=== PATIENT | female | born 1990 | race Caucasian/White ===

== ENCOUNTER 2017-02-22 00:45 | Observation (INO) | payer OTHER ==
[2017-02-22] VITALS (11 sets, daily range): BP systolic 103–173; BP diastolic 59–102; PULSE 77–108; RESP 16–19; TEMP 97.1–98.4; O2SAT 96–100
[~2017-02-22] VITALS: Ht 165.1 cm; Wt 70.0 kg
[2017-02-22] MEDS ORDERED: LEVO25TA4 PO (01:02)
[2017-02-22] MEDS ORDERED: SODIUM CHLOR 0.9% 1000 ML INJ 1,000 ML IV ONE (01:13)
[2017-02-22] MEDS ORDERED: SODIUM CHLORIDE 0.9% FLUSH 10 ML FLUSH IVF PRN (01:15)
--- NOTE | 2017-02-22 01:40 | RADRPT ---
EXAM DATE/TIME: 02/22/2017 01:26 [place] COMPARISON: No previous studies available for comparison. INDICATIONS : Cough. MEDICAL HISTORY : None. SURGICAL HISTORY : None. ENCOUNTER: Initial ACUITY: 1 day PAIN SCORE: 0/10 LOCATION: Bilateral chest FINDINGS: A single view of the chest demonstrates the lungs to be symmetrically aerated without evidence of mas s, infiltrate or effusion. The cardiomediastinal contours are unremarkable. Osseous structures are intact. CONCLUSION: No acute disease. Saeed Saini MD on February 22, 2017 at 1:38 Board Certified Radiologist. This report was verified electronically.
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
[2017-02-22 01:47] LABS: BASOPHIL % 0.5 % (0.0-2.0); EOSINOPHIL # 0.2 TH/MM3 (0-0.4); EOSINOPHIL % 2.5 % (0.0-4.0); HEMATOCRIT 39.2 % (35.0-46.0); HEMO FLAGS DIFF FINAL; LYMPH % 40.4 % (9.0-44.0); LYMPHOCYTE # 2.6 TH/MM3 (1.0-4.8); MEAN CELL VOLUME 99.3 FL (80.0-100.0); MEAN CORPUSCULAR HEMOGLOBIN 35.2 PG (27.0-34.0); MEAN CORPUSCULAR HGB CONC 35.4 % (32.0-36.0); NEUT % 47.6 % (16.0-70.0); PLATELET COUNT 407 TH/MM3 (150-450); RED BLOOD COUNT 3.94 MIL/MM3 (4.00-5.30); WHITE BLOOD COUNT 6.4 TH/MM3 (4.0-11.0)
[2017-02-22 01:48] LABS: BACTERIA, URINE RARE /hpf; BLOOD, URINE NEG (NEG); GLUCOSE,URINE NEG (NEG); KETONE, URINE NEG (NEG); NITRITE,URINE NEG (NEG); SQUAMOUS EPITHELIAL CELL URINE 1 /hpf (0-5); URINE COLOR LIGHT-YELLOW (YELLW/STRAW)
[2017-02-22 01:51] LABS: COMMENT (UR) CULT NOT INDICATED; CULTURE IF INDICATED CULT NOT INDICATED
[2017-02-22 01:55] LABS: AMPHETAMINE, URINE NEG (NEG); BARBITURATES, URINE NEG (NEG); COCAINE, URINE NEG (NEG)
[2017-02-22 01:57] LABS: APTT (PATIENT) 26.4 SEC (24.3-30.1); INTERNATIONAL NORMALIZED RATIO 1.1 RATIO
[2017-02-22 02:11] LABS: ALT (GPT) 132 U/L (10-53); ANION GAP 11 MEQ/L (5-15); AST (GOT) 97 U/L (15-37); BICARBONATE 25.6 MEQ/L (21.0-32.0); BLOOD UREA NITROGEN 9 MG/DL (7-18); CHLORIDE 106 MEQ/L (98-107); GLOMERULAR FILTRATION RATE 143 ML/MIN (>89); POTASSIUM 3.2 MEQ/L (3.5-5.1); SODIUM (NA) 143 MEQ/L (136-145)
[2017-02-22 02:18] LABS: ALKALINE PHOSPHATASE 114 U/L (45-117); BETA HCG QUANT LESS THAN 1 MIU/ML (0-5); TOTAL BILIRUBIN ADULT 0.2 MG/DL (0.2-1.0)
[2017-02-22 02:20] LABS: ACETAMINOPHEN LESS THAN 2.0 MCG/ML (10.0-30.0)
[2017-02-22] MEDS ORDERED: SODIUM CHLOR 0.9% 1000 ML INJ 1,000 ML IV SCH (03:15)
[2017-02-22] MEDS ORDERED: POTASSIUM CHLORIDE 25 MEQ EFFERVESCENT TAB PO ONE (03:15)
[2017-02-22] MEDS ORDERED: NALOXONE HCL 0.4 MG/ML AMP IV PRN (04:00)
[2017-02-22] MEDS ORDERED: SODIUM CHLORIDE 0.9% FLUSH 10 ML FLUSH IV FLUSH PRN (04:00)
[2017-02-22] MEDS ORDERED: ONDANSETRON HCL 4 MG/2 ML VIAL IV ONE (04:15)
[2017-02-22] MEDS: SODIUM CHLOR 0.9% 1000 ML INJ 1,000 ML IV SCH ×2 (04:22→15:58)
[2017-02-22 04:55] LABS: ALKALINE PHOSPHATASE 99 U/L (45-117); ALT (GPT) 116 U/L (10-53); ANION GAP 9 MEQ/L (5-15); AST (GOT) 90 U/L (15-37); BICARBONATE 24.3 MEQ/L (21.0-32.0); BLOOD UREA NITROGEN 9 MG/DL (7-18); CHLORIDE 108 MEQ/L (98-107); GLOMERULAR FILTRATION RATE 139 ML/MIN (>89); POTASSIUM 4.2 MEQ/L (3.5-5.1); SODIUM (NA) 141 MEQ/L (136-145); TOTAL BILIRUBIN ADULT 0.2 MG/DL (0.2-1.0)
[2017-02-22] MEDS: SODIUM CHLORIDE 0.9% FLUSH 10 ML FLUSH IV FLUSH SCH ×2 (09:00→20:14)
[2017-02-22 09:54] LABS: BASOPHIL % 0.8 % (0.0-2.0); EOSINOPHIL # 0.1 TH/MM3 (0-0.4); EOSINOPHIL % 1.4 % (0.0-4.0); HEMATOCRIT 38.8 % (35.0-46.0); HEMO FLAGS DIFF FINAL; LYMPH % 30.2 % (9.0-44.0); LYMPHOCYTE # 1.6 TH/MM3 (1.0-4.8); MEAN CELL VOLUME 100.5 FL (80.0-100.0); MEAN CORPUSCULAR HEMOGLOBIN 35.1 PG (27.0-34.0); MEAN CORPUSCULAR HGB CONC 34.9 % (32.0-36.0); MONO % 11.3 % (0.0-8.0); NEUT % 56.3 % (16.0-70.0); PLATELET COUNT 362 TH/MM3 (150-450); RED BLOOD COUNT 3.86 MIL/MM3 (4.00-5.30); WHITE BLOOD COUNT 5.3 TH/MM3 (4.0-11.0)
[2017-02-22] MEDS ORDERED: LORazepam 1 MG TAB PO PRN (11:15)
[2017-02-22] MEDS ORDERED: FLUMAZENIL 0.5 MG/5 ML VIAL IV PUSH PRN (11:15)
[2017-02-22] MEDS ORDERED: LORazepam 2 MG/ML VIAL IV PUSH PRN ×2 (11:15)
[2017-02-22] MEDS ORDERED: LORazepam 2 MG TAB PO PRN (11:15)
[2017-02-22] MEDS: LEVOTHYROXINE SODIUM 25 MCG TAB PO SCH (11:15)
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
--- NOTE | 2017-02-22 11:26 | PD.CONS ---
Provisional Diagnosis Admission Date February 22, 2017 at 03:44 [place]. Major depressive disorder, single episode, severe, without psychosis, alcohol use disorder History of Present Illness Service Psychiatry Consult Requested By Primary Care Physician No Primary Care Physician HPI The patient is a 27 year old woman, domicile with boyfriend in [place], no kids, employed chiropractor assistance, without any significant psychiatric history, no previous suicidal attempts, no psychiatric hospitalizations, alcohol use disorder, who presents to the [facility] emergency department with a history of intentionally overdosing on 90-95 200 mg tablets of ibuprofen at approximately 11:30 PM this evening with the intention to after an argument with boyfriend. The patient reports that she was angry at her boyfriend. She reports that they have been fighting since yesterday, but she has been feeling depressed for the last 6 weeks, patient is oppositional and resistant, very irritable, refused to elaborate about the circumstances and the reason of her depression. She says that she moved to [place] from [place] about 3 months ago and since then she has been very unhappy, she feels that she had not been able to fulfill her goals she feels under appreciated by her boyfriend. She has been having increased problems sleeping at night, anxiety, everyday sadness, generalized pessimism, alcohol use, interpersonal conflicts with boyfriend and friends, increased sensitivity to rejection and frustration. Yesterday, she was drinking, she says that she was drunk, had an argument with her boyfriend and "decided just to end it all". However, at this moment she denies suicidal and homicidal ideation, she denies visual and auditory hallucinations. As per nurses patient has been at times agitated, irritable, verbally hostile, difficult to manage in the ER. She hasn' t needed ETO's. Patient is fully oriented 3, no attention deficit or fluctuation of consciousness present, patient denies the use of illicit drugs, reports every the use of alcohol, 3-6 beers. Review of Systems Constitutional: DENIES: Diaphoretic episodes, Fatigue, Fever, Weight gain, Weight loss, Chills, Dizziness, Change in appetite, Night Sweats Endocrine: DENIES: Abnorml menstrual pattern, Heat/cold intolerance, Polydipsia , Polyuria, Polyphagia Eyes: DENIES: Blurred vision, Diplopia, Eye inflammation, Eye pain, Vision loss , Photosensitivity, Double Vision Ears, nose, mouth, throat: DENIES: Tinnitus, Hearing loss, Vertigo, Nasal discharge, Oral lesions, Throat pain, Hoarseness, Ear Pain, Running Nose, Epistaxis, Sinus Pain, Toothache, Odynophagia Respiratory: DENIES: Apneas, Cough, Snoring, Wheezing, Hemoptysis, Sputum production, Shortness of breath Cardiovascular: DENIES: Chest pain, Palpitations, Syncope, Dyspnea on Exertion , PND, Lower Extremity Edema, Orthopnea, Claudication Gastrointestinal: DENIES: Abdominal pain, Black stools, Bloody stools, Constipation, Diarrhea, Nausea, Vomiting, Difficulty Swallowing, Anorexia Genitourinary: DENIES: Abnormal vaginal bleeding, Dysmenorrhea, Dyspareunia, Sexual dysfunction, Urinary frequency, Urinary incontinence, Urgency, Hematuria , Dysuria, Nocturia, Vaginal discharge Musculoskeletal: DENIES: Joint pain, Muscle aches, Stiffness, Joint Swelling, Back pain, Neck pain Integumentary: DENIES: Abnormal pigmentation, Pruritus, Rash, Nail changes, Breast masses, Breast skin changes, Nipple discharge Hematologic/lymphatic: DENIES: Bruising, Lymphadenopathy Immunologic/allergic: DENIES: Eczema, Urticaria Neurologic: DENIES: Abnormal gait, Headache, Localized weakness, Paresthesias, Seizures, Speech Problems, Tremor, Poor Balance Psychiatric: COMPLAINS OF: Depression, Suicidal Ideation, DENIES: Anxiety, Confusion, Mood changes, Hallucinations, Agitation, Homicidal Ideation, Delusions Past Family Social History Coded Allergies: Penicillin (Verified Allergy, Unknown, 02/22/17) Reported Medications Levothyroxine 25 Mcg Tab25 Mcg PO DAILY #30 TAB Ref 0 02/22/17 Current Medications Medications (Trade) Dose Ordered Sig/Kylie Route Start Time Stop Time Status Last Admin (NS 1000 ml Inj) 1,000 ml @ 100 mls/hr Q10H IV 02/22/17 03:51 02/22/17 04:22 (NS Flush) 2 ml UNSCH PRN IV FLUSH 02/22/17 04:00 (NS Flush) 2 ml BID IV FLUSH 02/22/17 09:00 (Narcan Inj) 0.4 mg UNSCH PRN IV 02/22/17 04:00 (Protonix) 40 mg DAILY PO 02/22/17 11:15 UNV (Synthroid) 25 mcg DAILY PO 02/22/17 11:15 UNV Family History Patient has a sister with bipolar disorder Social History Patient was born and raised in [place], she lived part of her time in [place], she has been living in [place] with her boyfriend in [place] for 3 months, she has no kids, she is unemployed, her highest level of education is high school Patient's Strengths (min. 2) Verbal communication Physical Exam A physical exam, no EPS, no tremors, no withdrawal, no psychomotor retardation or agitation, present Vital Signs Vital Signs Date Time Temp Pulse Resp B/P Pulse Ox O2 Delivery O2 Flow Rate FiO2 02/22/17 10:20 87 02/22/17 09:46 Room Air 02/22/17 09:00 97.4 19 139/96 98 Lab Results Toxicology is negative BAL was 282 Mental Status Examination Appearance woman, age appearing, good hygiene, [facility], she is partially cooperative, irritable, at times oppositional Speech: Slow Orientation: x3 Memory: Unremarkable Thought Process: Logical, Goal Directed, Linear Thought Content: Unremarkable Hallucination Type: None Attention and Concentration: Good Suicidal Ideation: No Previous Suicide Attempts: Yes Homicidal Ideation: No Previous Homicide Attempts: No Judgment: Poor Affect: Irritable Mood: Angry, Irritable Motor Activity: Normal gait Assessment & Plan Problem List: (1) Depression Assessment & Plan: The patient is a 27 year old woman, domicile with boyfriend in [place], no kids, employed chiropractor assistance, without any significant psychiatric history, no previous suicidal attempts, no psychiatric hospitalizations, alcohol use disorder, who presents to the [facility] emergency department with a history of intentionally overdosing on - 200 mg tablets of ibuprofen at approximately 11:30 PM this evening with the intention to after an argument with boyfriend. Patient was intoxicated with alcohol in her arrival to the ER, initial BAL was 282. Today on psychiatric evaluation patient presents symptomatology consistent with severe depression, she reports about 6 months of generalized pessimism, increased problems sleeping, recent alcohol use, increased sensitivity to rejection, to frustration, increased conflicts with couple and friends. Yesterday after argument she decided to commit suicide. Due to the lethality of her suicidal attempt and to the severity of depressive symptoms patient poses a very high risk of danger to herself and needs psychiatric hospitalization for stabilization. Patient should be transferred to psychiatry once medically stable. Watch for withdrawal, CIWA protocol. No psychotropics indicated at this moment. Patient should remain with 1:1 sitter in medical floor. Extensive psycho education, motivation and support provided. Collateral information is is still pending. We'll follow-up in the floor. ICD Code: F32.9 Assessment & Plan Estimated LOS: days Problem Qualifiers (1) Depression: Qualified Code: F32.9 - Depression, unspecified depression type Rusty Chang MD February 22, 2017 11:26
[2017-02-22 12:30] LABS: BLOOD GAS BASE EXCESS -2.7 mmol/L (-2-2); BLOOD GAS CARBOXYHEMOGLOBIN 1.1 % (0-4); BLOOD GAS HCO3 21 mmol/L (22-26); BLOOD GAS METHEMOGLOBIN 0.9 % (0-2); BLOOD GAS O2 HGB SATURATION 96 % (90-100); BLOOD GAS OXYGEN CONTENT 18.2 Vol % (12.0-20.0); BLOOD GAS PCO2 34 mmHg (38-42); BLOOD GAS PO2 97 mmHg (61-120); BLOOD GAS TOTAL HGB 13.5 G/DL (12.0-16.0); TEMP CORR TO 98.6
[2017-02-22] MEDS: THIAMINE HCL 100 MG TAB PO SCH (12:30)
[2017-02-22] MEDS: FOLIC ACID 1 MG TAB PO SCH (12:30)
[2017-02-22 12:31] LABS: CRITICAL VALUE NO; DRAW SITE RT RADIAL; FIO2 21 %; NUMBER OF ARTERIAL PUNCTURES 1; OXYGEN DEVICE ROOM AIR; STAT NO
[2017-02-22] MEDS: MULTIVITAMIN TAB PO SCH (12:31)
[2017-02-22] MEDS: PANTOPRAZOLE SOD 40 MG DELAYED RELEASE TAB PO SCH (12:31)
--- NOTE | 2017-02-22 14:20 | EKG ---
Date Performed: 02/22/2017 Time Performed: 00:59:54 PTAGE: 27 years EKG: Sinus rhythm WITH SINUS ARRHYTHMIA NONSPECIFIC T-WAVE ABNORMALITY BORDERLINE ECG NO PREVIOUS TRACING DOCTOR: Cooper Simmons Interpretating Date/Time 02/22/2017 14:17:47
[2017-02-22] MEDS ORDERED: ONDANSETRON HCL 4 MG/2 ML VIAL IV PUSH PRN (15:45)
[2017-02-23] VITALS (7 sets, daily range): BP systolic 114–154; BP diastolic 75–104; PULSE 53–88; RESP 16–18; TEMP 96.5–98.1; O2SAT 98–100
[2017-02-23] MEDS: SODIUM CHLOR 0.9% 1000 ML INJ 1,000 ML IV SCH ×2 (00:10→09:34)
[2017-02-23] MEDS ORDERED: LORazepam 2 MG/ML VIAL IV PUSH ONE (00:45)
[2017-02-23] MEDS: LEVOTHYROXINE SODIUM 25 MCG TAB PO SCH (05:31)
[2017-02-23 08:15] LABS: ALKALINE PHOSPHATASE 94 U/L (45-117); ALT (GPT) 90 U/L (10-53); ANION GAP 9 MEQ/L (5-15); AST (GOT) 64 U/L (15-37); BICARBONATE 25.7 MEQ/L (21.0-32.0); BLOOD UREA NITROGEN 5 MG/DL (7-18); CHLORIDE 102 MEQ/L (98-107); GLOMERULAR FILTRATION RATE 161 ML/MIN (>89); POTASSIUM 3.6 MEQ/L (3.5-5.1); SODIUM (NA) 137 MEQ/L (136-145); TOTAL BILIRUBIN ADULT 1.5 MG/DL (0.2-1.0)
[2017-02-23] MEDS: SODIUM CHLORIDE 0.9% FLUSH 10 ML FLUSH IV FLUSH SCH (09:00)
[2017-02-23] MEDS: THIAMINE HCL 100 MG TAB PO SCH (09:31)
[2017-02-23] MEDS: MULTIVITAMIN TAB PO SCH (09:31)
[2017-02-23] MEDS: FOLIC ACID 1 MG TAB PO SCH (09:31)
[2017-02-23] MEDS: PANTOPRAZOLE SOD 40 MG DELAYED RELEASE TAB PO SCH (09:31)
[2017-02-23 11:07] LABS: TOTAL BILIRUBIN ADULT 1.2 MG/DL (0.2-1.0)
[2017-02-23 13:09] LABS: INTERNATIONAL NORMALIZED RATIO 1.1 RATIO; PROTHROMBIN TIME - PATIENT 11.8 SEC (9.8-11.6)
[2017-02-23] MEDS ORDERED: VITA100T2 PO (13:28)
[2017-02-23] MEDS ORDERED: PANT40TA3 PO (13:28)
[2017-02-23] MEDS ORDERED: THERTAB15 PO (13:28)
[2017-02-23] MEDS ORDERED: FOLI1TAB4 PO (13:28)
--- NOTE | 2017-02-23 13:29 | HHI.DCPOC ---
Discharge Care Plan Diagnosis: (1) Intentional ibuprofen overdose (2) Depression (3) Anxiety (4) Nausea (5) Elevated LFTs Goals to Promote Your Health * To prevent worsening of your condition and complications * To maintain your health at the optimal level Directions to Meet Your Goals Take your medications as prescribed Follow your dietary instruction Follow activity as directed Keep your appointments as scheduled Take your immunizations and boosters as scheduled If your symptoms worsen call your PCP, if no PCP go to Urgent Care Center or Emergency Room Smoking is Dangerous to Your Health. Avoid second hand smoke Call the 24-hour hour crisis hotline for domestic abuse at Saeed Bullock DO February 23, 2017 13:29
--- NOTE | 2017-02-23 13:36 | HHI.PR ---
Subjective Remarks The patient was upset about having to be transferred to psychiatry. She said she does not pose a risk to herself and is not depressed. She says she had an episode of nausea and vomiting yesterday but that has resolved. She also says her abdominal pain has resolved. Sitter at the bedside. Objective Vitals Vital Signs Date Time Temp Pulse Resp B/P Pulse Ox O2 Delivery O2 Flow Rate FiO2 02/23/17 12:00 97.8 82 17 142/94 99 02/23/17 08:00 97.1 73 16 137/96 98 02/23/17 04:31 96.5 53 18 131/76 100 02/23/17 01:47 114/77 02/23/17 00:30 97.6 63 18 154/104 98 02/22/17 20:23 98.4 77 18 140/93 98 02/22/17 16:00 97.4 83 18 137/86 98 I/O 02/22/17 02/22/17 02/22/17 02/23/17 02/23/17 02/23/17 07:00 15:00 23:00 07:00 15:00 23:00 Intake Total 965 ml 480 ml 360 ml Output Total 0 ml Balance 965 ml 480 ml 360 ml Intake Oral 480 ml 480 ml 360 ml IV Total 485 ml Output Stool Total 0 ml # Voids 4 2 1 # Bowel Movements 0 Result Diagram: 02/22/17 0915 02/23/17 0653 Imaging Last Impressions Chest X-Ray 02/22/17 0113 Signed Impressions: Service Date/Time: Wednesday, February 22, 2017 01:26 - CONCLUSION: No acute disease. Saeed Saini MD Objective Remarks GENERAL: This is a well-nourished, well-developed patient, in no apparent distress. SKIN: No rashes, ecchymoses or lesions. Cool and dry. HEAD: Atraumatic. Normocephalic. No temporal or scalp tenderness. EYES: Pupils equal round and reactive. Extraocular motions intact. No scleral icterus. No injection or drainage. ENT: Nose without bleeding, purulent drainage or septal hematoma. Throat without erythema, tonsillar hypertrophy or exudate. Uvula midline. Airway patent. NECK: Trachea midline. No JVD or lymphadenopathy. Supple, nontender, no meningeal signs. CARDIOVASCULAR: Regular rate and rhythm without murmurs, gallops, or rubs. RESPIRATORY: Clear to auscultation. Breath sounds equal bilaterally. No wheezes , rales, or rhonchi. GASTROINTESTINAL: Abdomen soft, nontender, nondistended. No hepato-splenomegaly , or palpable masses. No guarding. MUSCULOSKELETAL: Extremities without clubbing, cyanosis, or edema. No joint tenderness, effusion, or edema noted. NEUROLOGICAL: Awake and alert. Cranial nerves II through XII intact. Motor and sensory grossly within normal limits. Five out of 5 muscle strength in all muscle groups. Normal speech. PSYCH: Teary-eyed. Medications and IVs Current Medications Medications (Trade) Dose Ordered Sig/Kylie Route Start Time Stop Time Status Last Admin (NS 1000 ml Inj) 1,000 ml @ 100 mls/hr Q10H IV 02/22/17 03:51 02/23/17 00:10 (NS Flush) 2 ml UNSCH PRN IV FLUSH 02/22/17 04:00 (NS Flush) 2 ml BID IV FLUSH 02/22/17 09:00 (Narcan Inj) 0.4 mg UNSCH PRN IV 02/22/17 04:00 (Protonix) 40 mg DAILY PO 02/22/17 13:00 02/23/17 09:31 (Synthroid) 25 mcg DAILY@06 PO 02/22/17 11:15 02/23/17 05:31 (Romazicon Inj) 0.2 mg Q1M PRN IV PUSH 02/22/17 11:15 (Ativan) 1 mg Q4H PRN PO 02/22/17 11:15 (Ativan) 2 mg Q2H PRN PO 02/22/17 11:15 (Ativan Inj) 2 mg Q1H PRN IV PUSH 02/22/17 11:15 (Ativan Inj) 2 mg Q15M PRN IV PUSH 02/22/17 11:15 (Vitamin B1) 100 mg DAILY PO 02/22/17 11:30 02/23/17 09:31 (Folate) 1 mg DAILY PO 02/22/17 11:30 02/23/17 09:31 (Theragran) 1 tab DAILY PO 02/22/17 11:30 02/23/17 09:31 (Zofran Inj) 4 mg Q6H PRN IV PUSH 02/22/17 15:45 02/22/17 15:58 A/P Assessment and Plan Intentional ibuprofen overdose The patient endorses ingestion of 90-95 200 mg ibuprofen tablets. The patient was upset after a fight with her boyfriend. She was [place] acted. Poison control was contacted by the emergency department. EKG unremarkable. She does have elevated LFTs which are improving. Tox screen negative. Appreciate psychiatry consult. - Discharge to psychiatry for stabilization. Continue [place] Act and sitter. - monitor CMP. - PPI. Elevated LFTs/ Alcohol use The pt endorses drinking regularly. Indirect bilirubin level elevated. Otherwise LFTs continued to improve. CBC and coag stable. - trend LFTs. - alcohol cessation instruction. - CIWA protocol. - thiamine, folate, MVI. Hypothyroidism The pt is on levothyroxine. TSH was elevated but free T4 was within normal limits. - Continue home levothyroxine. Hypokalemia K level normal following repletion. - Resolved. PPx: Ambulation. Discharge Planning Discharge to psychiatry. The patient is medically stable at this time. Saeed Bullock DO February 23, 2017 13:36
[2017-02-23] MEDS ORDERED: POTASSIUM CHLORIDE 25 MEQ EFFERVESCENT TAB PO ONE (13:45)
== END 2017-02-23 17:37 ==
LOC: NEPE 00:45 → INTOOBSV 03:44 → NEDA 03:44 → N06A 09:08
PROVIDERS: ADMIT Hospitalist; ATTEND Hospitalist
DX: T39.312A Poisoning by propionic acid derivatives, intentional self-harm, initial encounter (principal); R10.13 Epigastric pain; K21.9 Gastro-esophageal reflux disease without esophagitis; E03.9 Hypothyroidism, unspecified; M54.9 Dorsalgia, unspecified; G89.29 Other chronic pain; F32.9 Major depressive disorder, single episode, unspecified; F41.9 Anxiety disorder, unspecified; R45.1 Restlessness and agitation; R11.0 Nausea; R79.89 Other specified abnormal findings of blood chemistry; E87.6 Hypokalemia
CPT/HCPCS: 36600; 71010; 80053; 80307; 81001; 82247; 82248; 82805; 84439; 84443; 84702; 85025; 85610; 85730; 93005; 96360; 99285; G0378; J2060; J2405; J7030

== ENCOUNTER 2017-02-23 17:44 | Inpatient (IN) | payer SELFPAY ==
[~2017-02-23] VITALS: Ht 162.6 cm; Wt 70.5 kg
[~2017-02-23 17:44] MED LIST: FOLI1TAB4 PO; LEVO25TA4 PO; PANT40TA3 PO; THERTAB15 PO; VITA100T2 PO
[2017-02-23 17:47] VITALS: BP 145/97; PULSE 81; RESP 18; TEMP 98.5; O2SAT 97
[2017-02-23] MEDS ORDERED: MAGNESIUM HYDROXIDE SUSP 30 ML CUP PO PRN (18:00)
[2017-02-23] MEDS ORDERED: NICOTINE 21 MG/24 HR PATCH T-DERMAL SCH (18:00)
[2017-02-23] MEDS ORDERED: ACETAMINOPHEN 325 MG TAB PO PRN (18:00)
[2017-02-23] MEDS ORDERED: ALUMINUM/MAGNESIUM/SIMETH 30 ML CUP PO PRN (18:00)
[2017-02-23] MEDS ORDERED: LORazepam 1 MG TAB PO PRN (18:00)
[2017-02-23] MEDS ORDERED: LORazepam 0.5 MG TAB PO PRN (18:00)
[2017-02-23] MEDS ORDERED: LORazepam 2 MG/ML VIAL IM PRN ×2 (18:00)
[2017-02-23] MEDS ORDERED: REMOVE OLD NICODERM (NICOTINE) PATCH T-DERMAL SCH (21:00)
[2017-02-24] MEDS ORDERED: LEVOTHYROXINE SODIUM 25 MCG TAB PO SCH (06:00)
[2017-02-24 06:13] VITALS: BP 127/81; PULSE 68; RESP 16; TEMP 97.8; O2SAT 96
[2017-02-24 07:40] LABS: ANION GAP 10 MEQ/L (5-15); BICARBONATE 25.5 MEQ/L (21.0-32.0); BLOOD UREA NITROGEN 7 MG/DL (7-18); CHLORIDE 103 MEQ/L (98-107); GLOMERULAR FILTRATION RATE 194 ML/MIN (>89); HDL CHOLESTEROL 70.9 MG/DL (40.0-60.0); LDL CHOLESTEROL 121 MG/DL (0-99); POTASSIUM 3.5 MEQ/L (3.5-5.1); SODIUM (NA) 138 MEQ/L (136-145)
--- NOTE | 2017-02-24 10:22 | HHI.HP ---
Provisional Diagnosis Admission Date February 23, 2017 at 17:44 [place] I. Major depressive disorder, single episode, without psychosis, alcohol use disorder [place] II. Deferred [place] III. Hypothyroidism [place] IV. Recent move from [place], couple's conflict [place] V. 40 Certification of Person's Competence To Provide Express and Informed Consent I have personally examined Trice Toledo , a person being served at [facility] on, February 24, 2017 10:07. Express and informed consent means consent voluntarily given in writing, by a competent person, after sufficient explanation and disclosure of the subject matter involved to enable the person to make a knowing and willful decision without any element of force, fraud, deceit, duress, or other form of constraint or coercion. This person is 18 years of age or older, is not now known to be incompetent to consent to treatment with a guardian advocate, and does not have a health care surrogate or proxy currently making medical treatment decisions. I have found this person to be one of the following: [X] Competent to provide express and informed consent, as defined above, for voluntary admission to this facility and is competent to provide express and informed consent for treatment. He/she has the consistent capacity to make well reasoned, willful, and knowing decisions concerning his or her medical or mental health treatment. The person fully and consistently understands the purpose of the admission for examination/placement and is fully capable of personally exercising all rights assured [place] Incompetent to provide express and informed consent to voluntary admission, and this is incompetent to provide express and informed consent to treatment. The person must be transferred to involuntary status and a petition for a guardian advocate filed with the Circuit Court. [] Refusing to provide express and informed consent to voluntary admission but is competent to provide express and informed consent for treatment. The person must be discharged or transferred to involuntary status. Form shall be completed within 24 hours of a person's arrival at the receiving facility and filed in the clinical record of each person: 1. Admitted on a voluntary basis 2. Permitted to provide express and informed consent to his/her own treatment 3. Allowed to transfer from involuntary to voluntary status 4. Prior to permitting a person to consent to his or her own treatment after having been previously found incompetent to consent to treatment. History of Present Illness Capacity: Has Capacity HPI 02/22/2017 The patient is a 27 year-old woman, domicile with boyfriend in [place], no kids, employed chiropractor assistance, without any significant psychiatric history, no previous suicidal attempts, no psychiatric hospitalizations, alcohol use disorder, medical history hypothyroidism, who presents to the [facility] emergency department with a history of intentionally overdosing on 90-95 200 mg tablets of ibuprofen with the intention to after an argument with boyfriend. The patient reports that she was angry at her boyfriend. She reports that they have been fighting since yesterday, but she has been feeling depressed for the last 6 weeks, patient is oppositional and resistant, very irritable, refused to elaborate about the circumstances and the reason of her depression. She says that she moved to [place] from [place] about 3 months ago and since then she has been very unhappy, she feels that she had not been able to fulfill her goals she feels under appreciated by her boyfriend. She has been having increased problems sleeping at night, anxiety, everyday sadness, generalized pessimism, alcohol use, interpersonal conflicts with boyfriend and friends, increased sensitivity to rejection and frustration. Yesterday, she was drinking, she says that she was drunk, had an argument with her boyfriend and "decided just to end it all". However, at this moment she denies suicidal and homicidal ideation, she denies visual and auditory hallucinations. As per nurses patient has been at times agitated, irritable, verbally hostile, difficult to manage in the ER. She hasn' t needed ETO's. Patient is fully oriented 3, no attention deficit or fluctuation of consciousness present, patient denies the use of illicit drugs, reports every the use of alcohol, 3-6 beers. patient was seen for initial psychiatric evaluation in the psychiatric unit by the psychiatric team, social group worker Kirstin and myself. Patient reports that she feels ashamed of her behavior and of overdosing herself. She says that she has been struggling with depressive symptoms for some weeks now. Since she moved from [place] she has been feeling down, overwhelmed, frustrated, pessimistic, with frequent mood swings, incapacity to control her emotions, decreased sensitivity to frustration and having frequent arguments with boyfriend. The way she has been coping with this depresses symptoms has been by increasing her alcohol intake. She says that she doesn't usually drinks more than 3-4 beers 4 times a week. However, the day of the suicidal attempt, she drank beers and heavily liqueur. Patient is still reluctant to talk about the circumstances and causes of the emotions that lead to overdosing herself, but she does clarify that she was drunk, and she does not remember a lot of details. Patient seems to be insightful about the negative impact of alcohol in her life, also insightful about the importance of talking and taking medication for her depression. At this moment she denies suicidal ideation, homicidal ideation, visual and auditory hallucinations. Patient is oriented 3 , no fluctuation of consciousness, no attention deficit present. Review of Systems Constitutional: DENIES: Diaphoretic episodes, Fatigue, Fever, Weight gain, Weight loss, Chills, Dizziness, Change in appetite, Night Sweats Endocrine: DENIES: Abnorml menstrual pattern, Heat/cold intolerance, Polydipsia , Polyuria, Polyphagia Eyes: DENIES: Blurred vision, Diplopia, Eye inflammation, Eye pain, Vision loss , Photosensitivity, Double Vision Ears, nose, mouth, throat: DENIES: Tinnitus, Hearing loss, Vertigo, Nasal discharge, Oral lesions, Throat pain, Hoarseness, Ear Pain, Running Nose, Epistaxis, Sinus Pain, Toothache, Odynophagia Respiratory: DENIES: Apneas, Cough, Snoring, Wheezing, Hemoptysis, Sputum production, Shortness of breath Cardiovascular: DENIES: Chest pain, Palpitations, Syncope, Dyspnea on Exertion , PND, Lower Extremity Edema, Orthopnea, Claudication Genitourinary: DENIES: Abnormal vaginal bleeding, Dysmenorrhea, Dyspareunia, Sexual dysfunction, Urinary frequency, Urinary incontinence, Urgency, Hematuria , Dysuria, Nocturia, Vaginal discharge Musculoskeletal: DENIES: Joint pain, Muscle aches, Stiffness, Joint Swelling, Back pain, Neck pain Integumentary: DENIES: Abnormal pigmentation, Pruritus, Rash, Nail changes, Breast masses, Breast skin changes, Nipple discharge Immunologic/allergic: DENIES: Eczema, Urticaria Neurologic: DENIES: Abnormal gait, Headache, Localized weakness, Paresthesias, Seizures, Speech Problems, Tremor, Poor Balance Psychiatric: DENIES: Anxiety, Confusion, Mood changes, Depression, Hallucinations, Agitation, Suicidal Ideation, Homicidal Ideation, Delusions Past Psych History Violence risk - self (6 mos) Increased Substance Abuse History Drugs/Alcohol past 12 months Patient reports 4 times per week 4-6 beers, denies the use of illicit drugs Past Family Social History Coded Allergies: Penicillin (Verified Allergy, Unknown, 02/22/17) Active Scripts Thiamine (Vitamin B-1)100 Mg Jla158 Mg PO DAILY #30 TAB Prov:Saeed Bullock DO 02/23/17 Pantoprazole 40 Mg Tab40 Mg PO DAILY #30 TAB Prov:Saeed Bullock DO 02/23/17 Multiple Vitamin (Thera/Beta-Carotene)1 Tab Tab1 Tab PO DAILY #30 TAB Prov:Saeed Bullock DO 02/23/17 Folic Acid (Folate)1 Mg Tab1 Mg PO DAILY #30 TAB Prov:Saeed Bullock DO 02/23/17 Reported Medications Levothyroxine 25 Mcg Tab25 Mcg PO DAILY #30 TAB Ref 0 02/22/17 Current Medications Medications (Trade) Dose Ordered Sig/Kylie Route Start Time Stop Time Status Last Admin (Ativan) 1 mg Q6H PRN PO 02/23/17 18:00 (Ativan Inj) 1 mg Q6H PRN IM 02/23/17 18:00 (Ativan) 0.5 mg Q12H PRN PO 02/23/17 18:00 (Ativan Inj) 0.5 mg Q12H PRN IM 02/23/17 18:00 (Tylenol) 650 mg Q4H PRN PO 02/23/17 18:00 (Milk Of Magnesia Liq) 30 ml DAILY PRN PO 02/23/17 18:00 (Mag-Al Plus Susp Liq) 30 ml Q6H PRN PO 02/23/17 18:00 (Synthroid) 25 mcg DAILY@06 PO 02/24/17 06:00 02/24/17 06:14 Family History Patient has a sister with bipolar disorder Social History Patient was born and raised in [place], she lived part of her time in [place], she has been living in [place] with her boyfriend in [place] for 3 months, she has no kids, she is unemployed, her highest level of education is high school Patient's Strengths (min. 2) Employed, verbal communication, family support Physical Exam On physical exam no stiffness, no tremors, no EPS, no withdrawal symptoms, psychomotor retardation or agitation, present Vital Signs Vital Signs Date Time Temp Pulse Resp B/P Pulse Ox O2 Delivery O2 Flow Rate FiO2 02/24/17 06:13 97.8 68 16 127/81 96 Mental Status Examination Appearance young woman, good hygiene, hospital [facility], today she is calm and cooperative Speech: Unremarkable Orientation: x3 Memory: Unremarkable Thought Process: Logical, Goal Directed, Linear Thought Content: Unremarkable Language Fluent and spontaneous Fund of Knowledge Adequate for level of education Hallucination Type: None Attention and Concentration: Good Suicidal Ideation: No Previous Suicide Attempts: Yes Homicidal Ideation: No Previous Homicide Attempts: No Judgment: Impulsive Affect: Euthymic, Sad Mood: Sad Motor Activity: Normal gait Assessment & Plan Problem List: (1) Depression Assessment & Plan: The patient is a 27 year old woman without any significant psychiatric history, no previous suicidal attempts, no psychiatric hospitalizations, alcohol use disorder, who presents to the [facility] emergency department with a history of intentionally overdosing on 90-95 200 mg tablets of ibuprofen with the intention to after an argument with boyfriend. Today on psychiatric evaluation patient presents symptomatology consistent with severe depression, she reports about 6 months of generalized pessimism, increased problems sleeping, recent alcohol use, increased sensitivity to rejection, to frustration, increased conflicts with couple and friends. Symptoms of depression led to suicidal attempt. Due to the lethality of her suicidal attempt and to the severity of depressive symptoms patient poses a very high risk of danger to herself and needs psychiatric hospitalization for stabilization. Appropriate measures would be taken. We will start Remeron 15 mg to help with depression. new car make ready worker intervention to completed psychosocial assessment, collateral information, individual and group therapy, also to start discharge planning. Extensive support, psychoeducation and motivation provided. Patient will sign voluntary admission. ICD Code: F32.9 Assessment & Plan Estimated LOS: days Problem Qualifiers (1) Depression: Rusty Chang MD February 24, 2017 10:22
[2017-02-24] MEDS ORDERED: LEVOTHYROXINE SODIUM 25 MCG TAB PO ONE (10:30)
[2017-02-24 13:31] LABS: HEMOGLOBIN A1b 1.3 %; HEMOGLOBIN Ao 86.8 %; HEMOGLOBIN LA1C 1.9 %; HEMOGLOBIN P3 3.2 %
[2017-02-24 18:00] VITALS: BP 156/106; PULSE 102; RESP 16; TEMP 97; O2SAT 97
[2017-02-24] MEDS ORDERED: MIRTAZAPINE 15 MG TAB PO SCH (21:00)
[2017-02-25 05:23] VITALS: BP 122/83; PULSE 74; RESP 16; TEMP 97.6; O2SAT 97
[2017-02-25] MEDS ORDERED: LEVOTHYROXINE SODIUM 50 MCG TAB PO SCH (06:00)
--- NOTE | 2017-02-25 11:21 | HHI.DS ---
Psychiatry Discharge Summary Inpatient Psychiatric care?: Yes Advance Directive: No Reason Not Provided: Due to Patient Condition Mental Health AdvanceDirective: No Health Care Proxy: No Admission Admission Date February 23, 2017 at 17:44 Admission Diagnosis: (1) Depression ICD Code: F32.9 Brief History 02/22/2017 The patient is a 27 year-old woman, domicile with boyfriend in [place], no kids, employed chiropractor assistance, without any significant psychiatric history, no previous suicidal attempts, no psychiatric hospitalizations, alcohol use disorder, medical history hypothyroidism, who presents to the [facility] emergency department with a history of intentionally overdosing on 90-95 200 mg tablets of ibuprofen with the intention to after an argument with boyfriend. The patient reports that she was angry at her boyfriend. She reports that they have been fighting since yesterday, but she has been feeling depressed for the last 6 weeks, patient is oppositional and resistant, very irritable, refused to elaborate about the circumstances and the reason of her depression. She says that she moved to [place] from [place] about 3 months ago and since then she has been very unhappy, she feels that she had not been able to fulfill her goals she feels under appreciated by her boyfriend. She has been having increased problems sleeping at night, anxiety, everyday sadness, generalized pessimism, alcohol use, interpersonal conflicts with boyfriend and friends, increased sensitivity to rejection and frustration. Yesterday, she was drinking, she says that she was drunk, had an argument with her boyfriend and "decided just to end it all". However, at this moment she denies suicidal and homicidal ideation, she denies visual and auditory hallucinations. As per nurses patient has been at times agitated, irritable, verbally hostile, difficult to manage in the ER. She hasn' t needed ETO's. Patient is fully oriented 3, no attention deficit or fluctuation of consciousness present, patient denies the use of illicit drugs, reports every the use of alcohol, 3-6 beers. patient was seen for initial psychiatric evaluation in the psychiatric unit by the psychiatric team, community mental health social worker Kirstin and myself. Patient reports that she feels ashamed of her behavior and of overdosing herself. She says that she has been struggling with depressive symptoms for some weeks now. Since she moved from [place] she has been feeling down, overwhelmed, frustrated, pessimistic, with frequent mood swings, incapacity to control her emotions, decreased sensitivity to frustration and having frequent arguments with boyfriend. The way she has been coping with this depresses symptoms has been by increasing her alcohol intake. She says that she doesn't usually drinks more than 3-4 beers 4 times a week. However, the day of the suicidal attempt, she drank beers and heavily liqueur. Patient is still reluctant to talk about the circumstances and causes of the emotions that lead to overdosing herself, but she does clarify that she was drunk, and she does not remember a lot of details. Patient seems to be insightful about the negative impact of alcohol in her life, also insightful about the importance of talking and taking medication for her depression. At this moment she denies suicidal ideation, homicidal ideation, visual and auditory hallucinations. Patient is oriented 3 , no fluctuation of consciousness, no attention deficit present. Tobacco Use In Past 30 Days: No Tobacco Past 30 Days Alcohol Use: 4 or More Times Per Week Hospital Course Patient was admitted in the psychiatric unit coming from the medical floor after being medically clear after overdosed with ibuprofen. Initially patient was depressed and has suicidal thoughts. Appropriate safety measures were taken. Patient had an initial psychiatric and psychosocial evaluation. She was started in psychotropics, psychotherapy and group activities. Patient adhered to psychotropics, showed immediate good response, not significant side effects. Family meeting with her boyfriend was sustained by community mental health social worker. Patient was easy to manage in the unit, no agitation or aggressive behavior were reported. She was fully compliant with medications and recommendations. She was seen by a hospitalist to manage hypothyroidism. At the moment of discharge patient was mentally stable, without depressive symptoms, nonpsychotic , no psychosis, no suicidality or homicidal ideation. Results Blood Pressure 122 / 83 Vital Signs Date Time Temp Pulse Resp B/P Pulse Ox O2 Delivery O2 Flow Rate FiO2 02/25/17 05:23 97.6 74 16 122/83 97 Laboratory Tests Test 02/24/17 06:17 Creatinine 0.39 MG/DL (0.50-1.00) Cholesterol Level 213 MG/DL (120-200) LDL Cholesterol 121 MG/DL (0-99) HDL Cholesterol 70.9 MG/DL (40.0-60.0) Laboratory Results Test 02/24/17 06:17 Hemoglobin A1c 5.1 % (4.3-6.0) Triglycerides Level 108 MG/DL (42-150) Cholesterol Level 213 MG/DL (120-200) LDL Cholesterol 121 MG/DL (0-99) HDL Cholesterol 70.9 MG/DL (40.0-60.0) Summary of Procedures No procedures done Pending results at discharge: No Medications # of Antipsychotic meds at D/C: 0 Approp Antipsych med options 1 - Minimum of three failed multiple trials of monotherapy. 2 - Documented plan to taper to monotherapy due to previous use of multiple meds OR cross-taper in progress at D/C. 3 - Documentation of augmentation of Clozapine. 4 - Justification other than those listed in allowable values 1-3, document here : Discharge Discharge Date: February 25, 2017 Discharge Diagnosis: (1) Adjustment disorder with depressed mood ICD Code: F43.21 Mental Status Exam at Disch young woman, age appearing, good hygiene, hospital [facility], calm, cooperative and pleasant. Her speech is soft, adequate, fluent. Mood is euthymic, affect congruent with mood. Thought process is logical, coherent and relevant. Thought content is devoid of SI, HI, AVH, no paranoia, no delusions present. Her insight, impulse control, judgment is improved. Her cognition is intact. Pt Condition on Discharge: Good Discharge Disposition: Discharge Home Discharge Instructions Diet Instructions: As Tolerated, No Restrictions Activities you can perform: Regular-No Restrictions Scheduled Appointment: Eduardo Hanna Appointment Date: March 03, 2017 Discharge Time > 30 minutes Discharge/Advance Care Plan Health Problems: (1) Depression Goals to promote your health * To prevent worsening of your condition and complications * To maintain your health at the optimal level Directions to meet your goals Take your medications as prescribed Follow your dietary instruction Follow activity as directed Keep your appointments as scheduled Take your immunizations and boosters as scheduled If your symptoms worsen call your PCP, if no PCP go to Urgent Care Center or Emergency Room For 02/05 questions related to your inpatient stay or results of tests pending at discharge, please contact Dr. Rusty Chang at Smoking is Dangerous to Your Health. Avoid second hand smoking Problem Qualifiers (1) Depression: Rusty Chang MD February 25, 2017 11:21
[2017-02-26] MEDS ORDERED: LEVOTHYROXINE SODIUM 25 MCG TAB PO SCH (06:00)
[2017-02-26] MEDS ORDERED: MULTIVITAMIN TAB PO SCH (09:00)
[2017-02-26] MEDS ORDERED: PANTOPRAZOLE SOD 40 MG DELAYED RELEASE TAB PO SCH (09:00)
[2017-02-26] MEDS ORDERED: FOLIC ACID 1 MG TAB PO SCH (09:00)
[2017-02-26] MEDS ORDERED: THIAMINE HCL 100 MG TAB PO SCH (09:00)
== END 2017-02-25 14:00 | disposition home or self-care (01) | DRG 881 ==
LOC: H260 17:44
PROVIDERS: ADMIT Psychiatry & Neurology Psychiatry; ATTEND Psychiatry & Neurology Psychiatry
DX: F32.9 Major depressive disorder, single episode, unspecified (principal); E03.9 Hypothyroidism, unspecified; F41.9 Anxiety disorder, unspecified
CPT/HCPCS: 80048; 80061; 83036